=== PATIENT | male | born 1975 | race Caucasian/White ===

== ENCOUNTER 2017-07-17 22:55 | Emergency (ER) | payer MEDICAID ==
[~2017-07-17] VITALS: Ht 182.9 cm; Wt 81.6 kg
[2017-07-18] MEDS ORDERED: cefTRIAXone SOD 1,000 MG VL IM ONE (01:30)
[2017-07-18] MEDS ORDERED: TETANUS-DIPTH-ACEL PERTUSSIS 0.5ML SYRG IM ONE (01:45)
[2017-07-18] MEDS ORDERED: BACITRACIN TOP OINT 1 UD PKG TOP ONE (01:45)
[2017-07-18 02:01] VITALS: BP 149/107
== END 2017-07-18 02:03 | disposition home or self-care (01) ==
LOC: EDBD 22:55 → ER 22:59
DX: S51.811A Laceration without foreign body of right forearm, initial encounter (principal); W26.0XXA Contact with knife, initial encounter; Y93.89 Activity, other specified; Y92.89 Other specified places as the place of occurrence of the external cause; Y99.8 Other external cause status
CPT/HCPCS: 12002; 73090; 90471; 90715; 96372; 99284; J0696

== ENCOUNTER 2017-08-06 14:22 | Emergency (ER) | payer MEDICAID ==
[~2017-08-06] VITALS: Ht 180.3 cm; Wt 81.6 kg
[2017-08-06 14:25] VITALS: BP 123/83
== END 2017-08-06 20:00 | disposition left against medical advice (07) ==
LOC: ER 14:26
DX: S61.411D Laceration without foreign body of right hand, subsequent encounter (principal); Z53.21 Procedure and treatment not carried out due to patient leaving prior to being seen by health care provider; X58.XXXD Exposure to other specified factors, subsequent encounter